=== PATIENT | female | born 1970 | race Caucasian/White ===

== ENCOUNTER 2018-12-03 03:05 | Emergency (ER) | payer SELFPAY ==
[~2018-12-03] VITALS: Ht 158 cm; Wt 90.0 kg
[2018-12-03 03:20] VITALS: TEMP 97.7
[2018-12-03] MEDS ORDERED: LIPITOR20 MG PO (04:04)
[2018-12-03] MEDS ORDERED: TOPROL XL100 MG PO (04:04)
[2018-12-03] MEDS ORDERED: ASPIRIN 81M81 MG/TA2 PO (04:04)
[2018-12-03] MEDS ORDERED: TESSALON PERLE200 MG PO (04:07)
[2018-12-03] MEDS ORDERED: ZITHROMAX500 M2 PO (04:07)
[2018-12-03 05:53] VITALS: BP 121/77; PULSE 55
== END 2018-12-03 05:53 | disposition home or self-care (01) ==
LOC: COL.ER 03:05
DX: J20.9 Acute bronchitis, unspecified (principal); I10 Essential (primary) hypertension; Z79.82 Long term (current) use of aspirin